=== PATIENT | male | born 1945 | race Caucasian/White ===

== ENCOUNTER 2017-02-04 10:42 | Emergency (ER) | payer BC ==
[2017-02-04 10:50] VITALS: BP 158/74; PULSE 77; RESP 16; TEMP 97.7; O2SAT 95
--- NOTE | 2017-02-04 12:35 | EDPHY ---
H & P Time Seen by Provider: 02/04/17 12:03 HPI/ROS: HPI Swelling on right cheek. 71-year-old male by private vehicle with his . This patient reports that he noticed a swelling on his right mid to lower cheek starting yesterday mid afternoon. It has increased in swelling cough since that time. It is tender to the touch. He has not had a fever. He denies any sensation of that on the buccal mucosa. No trauma. No bite from an insect or other animal that he is aware of. ROS: Constitutional: No fever, no chills. No weakness. Eyes: No discharge. No changes in vision. ENT: No sore throat. No nasal congestion or rhinorrhea. Musculoskeletal: No neck pain. No myalgias or arthralgias. Skin: No rashes. As above. Neurological: No headache. No focal weakness or altered sensation. Past medical history: Hypertension, hyperlipidemia. Social history: Here with his . Nonsmoker. Physical Exam: General Appearance: Alert, no distress. This patient is responding to questions appropriately and in full sentences. This patient appears well- hydrated and well-nourished. Eyes: Pupils equal and round no pallor or injection. No lid edema, erythema or injection. ENT, Mouth: Mucous membranes are moist. The pharyngeal tissues are unremarkable. No edema or swelling. No asymmetry suggestive of abscess. No erythema or exudates. No buccal mucosal involvement. Face: He has a tender erythematous and mildly indurated swelling that is about the size of a dime right mid to lower cheek. It appears that this is caused by an ingrown hair with soccer. The diameter of the induration associated with it is about that of a quarter. No fluctuance superficially. Neurological: Motor sensory function is grossly intact. Cranial nerves are normal. Gait is normal. Skin: Warm and dry, no rashes. Musculoskeletal: Neck is supple and nontender. No cervical or submandibular lymphadenopathy. Extremities are symmetrical. All joints range without pain or impingement. Psychiatric: No agitation. No depression. Database: EKG: Imaging: Procedures: Procedure: Abscess drainage. The patient's abscess was located on the right cheek. I obtained verbal consent from the patient to drain the abscess who was informed about the possibility of bleeding and pain. The abscess was incised with a 11. Blade scalpel and a small amount of purulent drainage was expressed. I irrigated the wound. The patient tolerated the procedure well. The procedure was performed by myself. Emergency department course: After incision and drainage as above the patient's medication allergies were reviewed. He has a vague allergy to sulfa medications. He states that he thinks he has had Bactrim in the past and has not had a reaction to it. He was given a Bactrim DS tablet in Augmentin 875 mg. He was observed in the emergency department for about an hour after this medication. No reaction. On re-evaluation at 1:30 p.m. he is resting comfortably. He feels comfortable going home with his . I will prescribe this medication for 5 days. Follow- up and return to emergency department precautions were reviewed with him and his . All of their questions were answered. He was discharged in good condition. Differential Diagnosis: The differential diagnosis on this patient includes but is not limited to facial abscess. Dental infection, gingival stomatitis unlikely. This represents a partial list of diagnoses considered. These considerations are based on history, physical exam, past history, reassessment and diagnostic testing. Smoking Status: Never smoked Constitutional: Initial Vital Signs Temperature (C) 36.5 C 02/04/17 10:45 Heart Rate 77 02/04/17 10:45 Respiratory Rate 16 02/04/17 10:45 Blood Pressure 158/74 H 02/04/17 10:45 O2 Sat (%) 95 02/04/17 10:45 O2 Delivery Mode Room Air Allergies/Adverse Reactions: No Known Allergies Allergy (Unverified 02/04/17 10:49) Home Medications: Medication Instructions Recorded Amoxicillin/Clavulanate Pot 875 mg PO BID 5 Days 02/04/17 [Augmentin 875 mg tab] Sulfamethox/Tmp 800/160 mg 1 tab PO BID@1000,2200 #10 tab 02/04/17 [Bactrim Ds] Medical Decision Making - Data Points Medications Given: Discontinued Medications Amoxicillin/Clavulanate Potassium (Augmentin 875mg) 875 mg PO EDNOW ONE PRN Reason: Protocol Stop: 02/04/17 12:50 Last Admin: 02/04/17 12:54 Dose: 875 mg Trimethoprim/Sulfamethoxazole (Bactrim Ds) 1 ea PO EDNOW ONE PRN Reason: Protocol Stop: 02/04/17 12:50 Last Admin: 02/04/17 12:54 Dose: 1 ea Departure - Departure Disposition: Home, Routine, Self-Care Clinical Impression: Facial abscess Condition: Good Instructions: Abscess (ED), Abscess Follow-up (ED) Additional Instructions: Read and follow provided instructions. Follow-up with your primary care physician in 1-2 days for re-evaluation. Take medication as prescribed. Return to the emergency department for worsening swelling, pain, fever or other serious concerns. Referrals: KINA CASTREJON [Other] - As per Instructions Prescriptions: Amoxicillin/Clavulanate Pot [Augmentin 875 mg tab] 875 mg PO BID 5 Days Sulfamethox/Tmp 800/160 mg [Bactrim Ds] 1 tab PO BID@1000,2200 #10 tab
[2017-02-04] MEDS ORDERED: SULFAMETHOX/TMP 800/160 MG 1 TAB PO ONE (12:49)
[2017-02-04] MEDS ORDERED: AMOXICILLIN/CLAVULANATE POT 875/125 MG TAB PO ONE (12:49)
== END 2017-02-04 13:45 | disposition home or self-care (01) ==
PROC: 0H91XZZ Drainage of Face Skin, External Approach (ICD-10-PCS; principal; 2017-02-04)
DX: L02.01 Cutaneous abscess of face (principal); I10 Essential (primary) hypertension